=== PATIENT | female | born 1940 | race Caucasian/White ===

== ENCOUNTER 2021-05-02 12:07 | Emergency (ER) | payer MEDICARE ==
[~2021-05-02] VITALS: Ht 162.6 cm; Wt 54.7 kg
[2021-05-02 12:15] VITALS: BP 164/57
== END 2021-05-02 13:43 | disposition home or self-care (01) ==
LOC: ER 12:08
DX: H53.8 Other visual disturbances (principal); H35.30 Unspecified macular degeneration
CPT/HCPCS: 70450; 99284